=== PATIENT | male | born 1945 | race Caucasian/White ===

== ENCOUNTER 2016-12-02 09:29 | Outpatient (CLI) | payer MEDICARE | END 2016-12-02 09:30 | disposition home or self-care (01) | DX: N40.0 Benign prostatic hyperplasia without lower urinary tract symptoms (principal); M25.562 Pain in left knee; I49.9 Cardiac arrhythmia, unspecified; M16.12 Unilateral primary osteoarthritis, left hip; R73.01 Impaired fasting glucose ==

== ENCOUNTER 2017-01-21 07:08 | Day surgery (SDC) | payer MEDICARE ==
[2017-01-21] MEDS ORDERED: LACTATED RINGERS 1,000 ML IV ONE ×2 (07:49→09:28)
[2017-01-21] MEDS ORDERED: fentaNYL 100 MCG/2 ML VIAL IVP ONE (08:46)
[2017-01-21] MEDS ORDERED: MIDAZOLAM 2 MG/2 ML VIAL IVP ONE (08:46)
[2017-01-21] MEDS ORDERED: EPINEPHrine ABBOJECT 1 MG/10 ML SYRINGE IVP ONE ×2 (09:24→10:08)
[2017-01-21 11:58] VITALS: BP 136/83
== END 2017-01-21 07:09 | disposition home or self-care (01) ==
LOC: SDS 07:08
PROVIDERS: ATTEND Surgery
PROC: 0DBN8ZZ Excision of Sigmoid Colon, Via Natural or Artificial Opening Endoscopic (ICD-10-PCS; principal; 2017-01-21 08:15)
DX: Z12.11 Encounter for screening for malignant neoplasm of colon (principal); D12.7 Benign neoplasm of rectosigmoid junction; Z83.3 Family history of diabetes mellitus; Z80.3 Family history of malignant neoplasm of breast; Z90.49 Acquired absence of other specified parts of digestive tract
CPT/HCPCS: 45380; J7120; 88305

== ENCOUNTER 2017-02-19 09:38 | Outpatient (CLI) | payer MEDICARE | END 2017-02-19 09:39 | disposition home or self-care (01) | LOC: LAB 09:38 | PROVIDERS: ATTEND Orthopaedic Surgery | DX: Z01.818 Encounter for other preprocedural examination (principal) | CPT/HCPCS: 87640 ==

== ENCOUNTER 2017-04-22 04:29 | Inpatient (IN) | payer MEDICARE ==
[2017-04-22] MEDS ORDERED: ceFAZolin 2 GM/50 ML 50 ML IV ONE (06:26)
[2017-04-22] MEDS ORDERED: LACTATED RINGERS 1,000 ML IV ONE ×2 (06:58→08:36)
[2017-04-22] MEDS ORDERED: MIDAZOLAM 2 MG/2 ML VIAL IVP ONE (08:00)
[2017-04-22] MEDS ORDERED: PROPOFOL 200 MG/20 ML VIAL IVP ONE (08:00)
[2017-04-22] MEDS ORDERED: diphenhydrAMINE INJ 50 MG/ML VIAL IVP ONE (08:00)
[2017-04-22] MEDS ORDERED: ACETAMINOPHEN 1,000 MG/100 ML VIAL IV ONE (08:00)
[2017-04-22] MEDS ORDERED: LIDOCAINE-MPF 2% 5 ML VIAL IM ONE (08:00)
[2017-04-22] MEDS ORDERED: fentaNYL 100 MCG/2 ML VIAL IVP ONE (08:00)
[2017-04-22] MEDS ORDERED: MORPHINE PF 5 MG/10 ML AMP EP ONE (08:00)
[2017-04-22] MEDS ORDERED: ROPIVACAINE 0.5% PF 20 ML AMPULE SUBQ ONE (08:05)
[2017-04-22] MEDS ORDERED: BUPIVACAINE 0.5% PF 30 ML VIAL SUBQ ONE (08:06)
[2017-04-22] MEDS ORDERED: EPINEPHrine 1 MG/ML AMP IVP ONE (08:06)
[2017-04-22] MEDS ORDERED: KETOROLAC 15 MG/ML VIAL IVP ONE (08:06)
[2017-04-22] MEDS ORDERED: MORPHINE PF 5 MG/10 ML AMP SUBQ ONE ×3 (08:06)
[2017-04-22] MEDS ORDERED: SODIUM CHLORIDE FLUSH 0.9% 10 ML SYRINGE IVP PRN (10:14)
[2017-04-22] MEDS ORDERED: HYDROmorphone 1 MG/ML SYRINGE IVP PRN (10:14)
[2017-04-22] MEDS ORDERED: ONDANSETRON 4 MG/2 ML VIAL IVP PRN (10:14)
--- NOTE | 2017-04-22 10:14 | OPERATIVE REPORT ---
Operative Report - General Admit Date: 04/22/17 Procedure Date: 04/22/17 Planned Procedure: TKA right Pre-Op Diagnosis: djd right Procedure Performed: Total Knee Arthroplasty right Post Op Diagnosis: DJD right knee - Procedure Note Primary Surgeon: irvin Anesthesia Technique: Spinal Estimated Blood Loss (mL): 25 Drain/Tube Type: Hemovac
[2017-04-22] MEDS ORDERED: ceFAZolin 2 GM/50 ML 50 ML IV SCH (10:15)
--- NOTE | 2017-04-22 11:28 | XRAY Report ---
TWO-VIEW RIGHT KNEE: 04/22/2017 CLINICAL INDICATION: Post-op knee replacement. COMPARISON: 01/01/2017 FINDINGS: AP and lateral views of the right knee demonstrate a total knee replacement in place. Sub cutaneous gas and suprapatellar drain are noted. There is no evidence of acute fracture or immediate hardware complication. IMPRESSION: EXPECTED POSTOPERATIVE APPEARANCE OF RIGHT KNEE REPLACEMENT. JOB #: [id number] EXT JOB #:[id number]
[2017-04-22] MEDS: SODIUM CHLORIDE FLUSH 0.9% 10 ML SYRINGE IVP SCH ×2 (14:07→16:15)
[2017-04-22] MEDS: ceFAZolin 2 GM/50 ML 50 ML IV SCH ×2 (14:07→22:38)
[2017-04-22] MEDS: LACTATED RINGERS 1,000 ML IV SCH (14:07)
--- NOTE | 2017-04-22 15:31 | OPERATIVE REPORT ---
DATE OF SURGERY: 04/22/2017 00:00:00 04/22/2017. PREOPERATIVE DIAGNOSIS: Right knee severe osteoarthritis. POSTOPERATIVE DIAGNOSIS: Right knee severe osteoarthritis. NAME OF PROCEDURE: Right cemented total knee replacement arthroplasty. SURGEON: Chelsea Rodgers MD. ANESTHESIA: Spinal with Barry Heller CRNA. INDICATIONS FOR SURGERY: The patient is a 71-year-old male with progressive severe osteoarthritis of his right knee. The patient has reached the point of decreasing function and constant pain in his kne e with nonoperative measures failing. Recommendation is for total knee arthroplasty. FINDINGS AT SURGERY: The patient was under anesthesia of the spinal anesthetic block. His range of mo tion was noted to be 15 degrees to 90 degrees. At open arthrotomy he was found to have a large effusi on and large prominent loose bodies. Two were removed directly and 2 were in the posterior part of th e knee. The patient's knee was grossly contracted and the wear was tricompartmental and severe most a pparent on the distal femur and the posterior aspect of the tibial plateaus. The patient's bone densi ty was extremely hard, especially in the eburnated areas. DESCRIPTION OF OPERATIVE PROCEDURE: The patient was taken to operating room. He was given a spinal an esthetic. He was positioned supine. Tourniquet was placed on his thigh. His knee and leg were sterile ly prepped and draped in standard fashion. After surgical out the tourniquet was inflated and a curve d incision was made in the medial knee. This was taken through skin and subcutaneous tissue, allowing then exposure of the medial retinaculum which was incised in line with the incision. The knee was ve ry tight and very deformed. At this point loose bodies were removed and fluid evacuated and osteophyt es were removed from the femur, the tibia and the patella. The patella was of such a large size at 30 mm in thickness that an initial 10 mm resection was done of the femoral height and this allowed slig ht lateral release to be performed and the patella to be slid off to the side. Central hole was made in the femur and the distal cutting block was applied, and an extra 2 mm was resected from the femur and further osteophytes were removed. The exposure of the distal surface for sizing was difficult, bu t ultimately the size 12 was selected and the distal cutting block applied for resection of the 4-in- 1 cuts and when this was completed, exposure was made of the proximal tibia and this required some so ft tissue releases, resection of the residual ACL and PCL stumps and menisci with subluxation part of the anterior part of the joint could be exposed, the distal cutting block was applied with the tower and aligned properly. The cut was made to the depth that was visualized and then the block was left in place with the tower off and the remaining cut was carefully made. This still did not allow full f lexion of the knee, even with most of the tibia resected. This was accomplished by an osteotome, carlos ving posterior osteophytes and loose bodies in the posterior part of the knee that then allowed furth er flexion and exposure and subluxation of the tibia so that the remaining cut could be on the tibia. An extra 2 mm was taken from the tibial surface which then allowed a trial reduction with implants a nd drilling of the femur and sizing the proximal tibia to a size H. This was positioned and held with the drill pegs and then drilled and broached for the stem. The patella was then prepared by sizing f or a 38 mm diameter patella, which actually was medialized and this was drilled and a trial reduction performed of all these components with a size 10 poly which adequately restored full extension and a llowed excellent [id number] stability and full flexion to 125 degrees without instability of compon ents. The trial reduction was completed, the implants removed. The knee was thoroughly irrigated and more osteophytes removed as they were exposed. The tibia was then cemented in place, a size H followe d by cementing of the distal femur a size 12 and then insertion of the 10 mm poly and locking it in p lace and then cementing in 38 mm poly patella. All excess cement was removed. The knee was ranged and cycled and was stable. The patient's knee was flushed. A drain was placed and closure was with Fiber Wire closure of capsule followed by 0 and 2-0 Vicryl subcutaneous tissue, and a running subcuticular suture placed in the skin. Sterile dressings were applied. The patient was taken to recovery room in stable condition. ESTIMATED BLOOD LOSS: Minimal. COMPLICATIONS: None. SPONGE AND NEEDLE COUNTS: Correct. JOB #: [id number] EXT JOB #:[id number]
[2017-04-22] MEDS: oxyCOD/ACETAMIN 5 MG/325 MG TABLET PO PRN ×2 (16:15→22:38)
[2017-04-23] MEDS: ACETAMINOPHEN 325 MG TABLET PO PRN (00:34)
[2017-04-23] MEDS: LACTATED RINGERS 1,000 ML IV SCH (01:46)
[2017-04-23] MEDS: SODIUM CHLORIDE FLUSH 0.9% 10 ML SYRINGE IVP SCH ×3 (05:32→20:36)
[2017-04-23 05:51] LABS: HCT - HEMATOCRIT 34.3 % (42.0-52.0); HGB - HEMOGLOBIN 11.8 g/dL (14.0-18.0)
[2017-04-23 05:58] LABS: CALCIUM 7.9 mg/dL (8.5-10.3); CREATININE 0.9 mg/dL (0.6-1.2); POTASSIUM 4.1 mmol/L (3.5-5.0)
--- NOTE | 2017-04-23 08:41 | PROVIDER PROGRESS NOTE ---
Subjective - General Admit Date: 04/22/17 Procedure Date: 04/22/17 Post Op Days: 1 Procedure Performed: right total knee arthroplasty - Review of Systems Wound/Incisions: positive: Dressing dry and intact General: positive: No symptoms Musculoskeletal: positive: Joint pain Objective - Patient Data Reviewed Vital Signs: Yes Vital Signs: Vital Signs x48h Temp Pulse Resp BP Pulse Ox 04/23/17 06:00 37.3 C 53 L 16 104/59 L 95 04/23/17 04:15 37.3 C 04/23/17 02:00 37.7 C H Weight: Weight 04/21/17 04/22/17 04/23/17 23:59 23:59 23:59 Weight (kg) 106.1 kg Intake & Output: Intake and Output Totals x24h 04/21/17 04/22/17 04/23/17 23:59 23:59 23:59 Intake Total 2748 Output Total 875 475 Balance 1873 -475 - Lab Results Lab Results: 04/23/17 05:43 04/23/17 05:43 Other Lab Results: Lab Results x24hrs 04/23/17 04/23/17 Range/Units 05:43 05:43 Hgb 11.8 L (14.0-18.0) g/dL Hct 34.3 L (42.0-52.0) % Sodium 136 (135-145) mmol/L Potassium 4.1 (3.5-5.0) mmol/L Chloride 103 (101-111) mmol/L Carbon Dioxide 30 (21-32) mmol/L Anion Gap 3.0 L (6-13) BUN 24 H (6-20) mg/dL Creatinine 0.9 (0.6-1.2) mg/dL Estimated GFR (MDRD) 83 L (>89) Glucose 104 H (70-100) mg/dL Calcium 7.9 L (8.5-10.3) mg/dL - Imaging Results Radiology Imaging: positive: EMP read indepedently - Current Medications Current Medications: Current Medications Generic Name Dose Route Start Last Admin Trade Name Freq PRN Reason Stop Dose Admin Acetaminophen 650 - 975 mg 04/22/17 10:14 04/23/17 00:34 Tylenol PO 650 mg Q4HR PRN Administration PAIN Lactated Ringer's 1,000 mls @ 83.333 mls/hr 04/22/17 14:00 04/23/17 01:46 Lr IV 83.333 mls/hr .Q12H [place] Administration Oxycodone/Acetaminophen 1 tab 04/22/17 10:14 04/22/17 22:38 Percocet 5 Mg/325 Mg PO 1 tab Q4HR PRN Administration PAIN Sodium Chloride 10 ml 04/22/17 14:00 04/23/17 05:32 Normal Saline Flush 0.9% IVP Not Given Q8HR [place] - Physical Exam Wound/Incisions: positive: Dressing dry and intact General Appearance: positive: No acute distress Neurologic/Psychiatric: positive: Motor nml, Sensation nml, Mood/affect nml Impression/Plan - Problem List Problem List: POD #1 doing well with some pain but no nausea. Labs stable Plan rehab.
[2017-04-23] MEDS: POLYETHYLENE GLYCOL 3350 17 GM PACKET PO SCH (09:28)
[2017-04-23] MEDS: ASPIRIN EC 325 MG TABLET PO SCH ×2 (14:33→20:36)
[2017-04-23] MEDS: oxyCOD/ACETAMIN 5 MG/325 MG TABLET PO PRN (14:33)
[2017-04-24] MEDS: SODIUM CHLORIDE FLUSH 0.9% 10 ML SYRINGE IVP SCH ×3 (06:26→20:26)
--- NOTE | 2017-04-24 08:33 | PROVIDER PROGRESS NOTE ---
Subjective - General Admit Date: 04/22/17 Procedure Date: 04/22/17 Post Op Days: 2 Procedure Performed: right total knee arthroplasty - Review of Systems Wound/Incisions: positive: Dressing dry and intact Gastrointestinal: positive: No symptoms Musculoskeletal: positive: Joint pain Objective - Patient Data Reviewed Vital Signs: Yes Vital Signs: Vital Signs x48h Temp Pulse Resp BP Pulse Ox 04/24/17 07:51 37 C 73 16 120/72 96 04/24/17 04:46 37.1 C 71 16 124/74 94 Weight: Weight 04/22/17 04/23/17 04/24/17 23:59 23:59 23:59 Weight (kg) 106.1 kg Intake & Output: Intake and Output Totals x24h 04/22/17 04/23/17 04/24/17 23:59 23:59 23:59 Intake Total 2748 1360 200 Output Total 875 1250 1200 Balance 1873 110 -1000 - Lab Results Lab Results: 04/23/17 05:43 04/23/17 05:43 - Current Medications Current Medications: Current Medications Generic Name Dose Route Start Last Admin Trade Name Freq PRN Reason Stop Dose Admin Acetaminophen 650 - 975 mg 04/22/17 10:14 04/23/17 00:34 Tylenol PO 650 mg Q4HR PRN Administration PAIN Aspirin 325 mg 04/23/17 13:00 04/23/17 20:36 Ecotrin PO 325 mg BID [place] Administration Oxycodone/Acetaminophen 1 tab 04/22/17 10:14 04/23/17 14:33 Percocet 5 Mg/325 Mg PO 1 tab Q4HR PRN Administration PAIN Polyethylene Glycol 17 gm 04/23/17 09:00 04/23/17 09:28 Miralax PO 17 gm DAILY [place] Administration Sodium Chloride 10 ml 04/22/17 14:00 04/24/17 06:26 Normal Saline Flush 0.9% IVP 10 ml Q8HR [place] Administration - Physical Exam Wound/Incisions: positive: Healing well General Appearance: positive: No acute distress Extremities: positive: Joint swelling Neurologic/Psychiatric: positive: Motor nml, Sensation nml Impression/Plan - Problem List Problem List: POD #2 Pt has some mobility issues and knee pain. Healing looks excellent ]Plan for continued wound care and pain control PT today and plan for poss. D.C [facility]
[2017-04-24] MEDS: ASPIRIN EC 325 MG TABLET PO SCH ×2 (08:51→20:26)
[2017-04-24] MEDS: POLYETHYLENE GLYCOL 3350 17 GM PACKET PO SCH (08:51)
[2017-04-24] MEDS: ACETAMINOPHEN 325 MG TABLET PO PRN (16:25)
[2017-04-25] MEDS: SODIUM CHLORIDE FLUSH 0.9% 10 ML SYRINGE IVP SCH (06:57)
--- NOTE | 2017-04-25 07:15 | Discharge Plan ---
Discharge Plan Disposition: Home Health Service Condition: Good Prescriptions: oxyCODONE/ACET 5/325 [Percocet 5 mg/325 mg] 1 tab PO Q4HR PRN #30 tablet PRN Reason: Pain Aspirin EC [Ecotrin] 325 mg PO BID #60 tablet Polyethylene Glycol 3350 [Miralax] 17 gm PO DAILY #14 packet Diet: Regular Activity Restrictions: Wt Bearing as Tolerated Shower Restrictions: Yes (cover wound) Driving Restrictions: Yes (no driving) Assistance Devices: Walker Weight Bearing: weight bear as tolerated Instruction Topics: Knee Replace Home After Additional Instructions or Follow Up instructions: dressing to remain intact until clinic visit. ROM exercises at home..self directed. Follow-Up Care: Home Health - PT (ROM exercises of the right knee. Modalities. Home exercises. WEight bear as tolerated) No Smoking: If you smoke, Please STOP! Call for help. Follow-up with: David Almeida MD [Primary Care Provider] - Chelsea Rodgers MD [Provider Admit Priv/Credential] -
[2017-04-25] MEDS: ASPIRIN EC 325 MG TABLET PO SCH (09:00)
[2017-04-25] MEDS: POLYETHYLENE GLYCOL 3350 17 GM PACKET PO SCH (09:00)
[2017-04-25 10:50] VITALS: BP 119/63
--- NOTE | 2017-04-29 14:19 | DISCHARGE SUMMARY ---
DATE OF ADMISSION: 04/22/2017 DATE OF DISCHARGE: 04/25/2017 REASON FOR ADMISSION: Right knee degenerative arthritis. Operative procedure was 04/22/2017, a right total knee replacement arthroplasty. The patient is a 71-year-old male who presented for elective eric eduled right total knee arthroplasty. The patient had increasing pain in his knee with functional bryant itation and was failing nonoperative treatment. DESCRIPTION OF THE HOSPITAL COURSE: The patient was admitted, and he underwent surgery as planned and had uneventful course in surgery and then returned to the hospital floor. There he received standard care in the postoperative period of a total knee arthroplasty, including IV antibiotics, DVT prophyl axis, early mobilization with therapy and pain management. At the time of the patient's planned disch arge to home, the patient's wound was healing well. He was independent, getting out of bed and to the bathroom. He was moving his knee reasonably well in the early period. The plan at discharge was for him to be discharged to home with home health visiting, and he was to be on his regular medications, including oxycodone for pain and enteric aspirin b.i.d. for DVT prophylaxis. His office visit was to be in the clinic within a week of discharge. He was using a walker and was to be weightbearing as serenity jaime. JOB #: [id number] EXT JOB #:[id number]
== END 2017-04-25 11:05 | disposition home or self-care (01) | DRG 470 ==
LOC: MS2 06:06
PROVIDERS: ADMIT Orthopaedic Surgery; ATTEND Orthopaedic Surgery
PROC: 0SRC0J9 Replacement of Right Knee Joint with Synthetic Substitute, Cemented, Open Approach (ICD-10-PCS; principal; 2017-04-22 07:30)
DX: M17.11 Unilateral primary osteoarthritis, right knee (principal)
CPT/HCPCS: 36415; 80048; 85014; 85018

== ENCOUNTER 2017-10-21 08:26 | Day surgery (SDC) | payer MEDICARE ==
[~2017-10-21 08:26] MED LIST: ceFAZolin 1 GM VIAL ONE
[2017-10-21] MEDS ORDERED: LACTATED RINGERS 1,000 ML IV ONE ×2 (09:03→11:54)
[2017-10-21] MEDS ORDERED: ROPIVACAINE 0.5% PF 20 ML AMPULE ONE (09:32)
[2017-10-21] MEDS ORDERED: NEOSTIGMINE 1 MG/1 ML 10 ML MDV IVP ONE (10:00)
[2017-10-21] MEDS ORDERED: DEXAMETHASONE 4 MG/ML VIAL IVP ONE (10:00)
[2017-10-21] MEDS ORDERED: LIDOCAINE-MPF 2% 5 ML VIAL IM ONE (10:00)
[2017-10-21] MEDS ORDERED: MIDAZOLAM 2 MG/2 ML VIAL IVP ONE (10:00)
[2017-10-21] MEDS ORDERED: fentaNYL 100 MCG/2 ML VIAL IVP ONE (10:00)
[2017-10-21] MEDS ORDERED: ONDANSETRON 4 MG/2 ML VIAL IVP ONE (10:00)
[2017-10-21] MEDS ORDERED: ACETAMINOPHEN 1,000 MG/100 ML 100 ML IV ONE (10:00)
[2017-10-21] MEDS ORDERED: GLYCOPYRROLATE 1 MG/5 ML VIAL IVP ONE (10:00)
[2017-10-21] MEDS ORDERED: PROPOFOL 200 MG/20 ML VIAL IVP ONE (10:00)
[2017-10-21] MEDS ORDERED: BUPIVACAINE 0.25% PF 30 ML VIAL SUBQ ONE (11:30)
--- NOTE | 2017-10-21 12:23 | OPERATIVE REPORT ---
DATE OF SERVICE: 10/21/2017 Physician: Chelsea Rodgers MD PREOPERATIVE DIAGNOSIS: Left Achilles tendon tear. POSTOPERATIVE DIAGNOSIS: Left Achilles tendon tear. PROCEDURE PERFORMED: Left Achilles tendon repair. SURGEON: Chelsea Rodgers MD ANESTHESIA: General by Denise Ron. INDICATIONS FOR SURGERY: The patient is a 72-year-old male with a ski injury, in which he was thrown forward and felt a painful sensation in his left Achilles and suffered a traumatic rupture. He desired surgical repair after discussion with him about alternatives. FINDINGS AT SURGERY: Patient was found to have a midsubstance tear of the Achilles tendon, approximately 3 inches above its insertion in the calcaneus. The tear showed fibrillation and strands and was not transverse and simple. The patient's plantaris was intact. DESCRIPTION OF OPERATIVE PROCEDURE: Patient was taken to the operating room, given a general anesthetic and then rolled into a prone position on a well-padded, bolstered hospital OR table and once comfortably positioned the tourniquet was placed on the patient's left thigh and his left foot and ankle was sterilely prepped and draped in a standard fashion. After surgical timeout, the tourniquet was inflated. A posterior 5-inch incision was made along the lateral aspect of the Achilles and a careful dissection made down to the Achilles tendon sheath, preserving the sural nerve and the vasculature around that. The sheath was opened longitudinally and the nature of the tear was identified and hematoma evacuated. This tear was carefully sutured and repaired utilizing #2 FiberWire with a Alden type suture utilizing a modified Seth type stitch and then reinforcing this with #1 Vicryl, repairing strands of torn tendon and tacking them down. At the conclusion, 0 Vicryl was used interrupted to repair of the tendon sheath over the repair and 0 and 2-0 Vicryl used in the subcutaneous tissue in interrupted fashion and finally 4-0 Monocryl in a running fashion subcutaneous. A Mediplex dressing was applied to the posterior incision and then a carefully padded posterior splint was applied. The patient was then placed onto a hospital gurney in a supine position and taken to recovery room in stable condition. ESTIMATED BLOOD LOSS: Minimal. COMPLICATIONS: None. COUNTS: Sponge and needle counts were correct. ESTIMATED BLOOD LOSS: Less than 20 mL TOURNIQUET TIME: About 30 minutes. TD: 10/21/2017 12:21
[2017-10-21 13:10] VITALS: BP 129/75
== END 2017-10-21 08:27 | disposition home or self-care (01) ==
LOC: SDS 08:26
PROVIDERS: ATTEND Orthopaedic Surgery
PROC: 0LQP0ZZ Repair Left Lower Leg Tendon, Open Approach (ICD-10-PCS; principal; 2017-10-21 09:45)
DX: S86.012A Strain of left Achilles tendon, initial encounter (principal); Y93.23 Activity, snow (alpine) (downhill) skiing, snowboarding, sledding, tobogganing and snow tubing
CPT/HCPCS: 27650; J0131; J7120

== ENCOUNTER 2019-03-26 06:09 | Day surgery (SDC) | payer MEDICARE ==
[2019-03-26] MEDS ORDERED: LACTATED RINGERS 1,000 ML IV ONE ×3 (06:19→09:11)
[2019-03-26] MEDS ORDERED: CEFAZOLIN SODIUM IN 0.9 % NACL 2 GM/100 ML BAG IV ONE (06:48)
--- NOTE | 2019-03-26 07:13 | ANESTHESIA ---
Pre-Anesthesia VS, & Labs - Diagnosis excision right posterior head/neck mass - Procedure excision right posterior neck mass Vital Signs: Temp Pulse Resp BP Pulse Ox 36.3 C L 45 L 15 141/78 H 94 03/26/19 06:35 03/26/19 06:35 03/26/19 06:35 03/26/19 06:35 03/26/19 06:35 Height 6 ft Weight (kg) 103 kg - NPO >8 hours Home Medications and Allergies Home Medications: Ambulatory Orders Glucos Sul 2Kcl/MSM/Chond/C/Mn [Glucosamine Chondroitin Cap] 1 each PO DAILY 03/16/19 Multivitamin [Daily Multiple Vitamin] 1 each PO DAILY 03/16/19 Turmeric 400 mg PO DAILY 03/16/19 Glucos Sul 2Kcl/MSM/Chond/C/Mn [Glucosamine Chondroitin Cap] 1 each PO DAILY 03/16/19 Multivitamin [Daily Multiple Vitamin] 1 each PO DAILY 03/16/19 Turmeric 400 mg PO DAILY 03/16/19 Allergies/Adverse Reactions: Allergies Allergy/AdvReac Type Severity Reaction Status Date / Time No Known Drug Allergies Allergy Verified 10/20/17 16:55 Anes History & Medical History - Anesthetic History Anesthesia Complications: reports: No previous complications - Medical History 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, asymtomatic) Pulmonary: reports: None Gastrointestinal: reports: Colon polyps Urinary: reports: Kidney stones Musculoskeletal: reports: Osteoarthritis Endocrine/Autoimmune: reports: None Skin: reports: None Smoking Status: Never smoker - Surgical History General: Appendectomy, Bowel surgery, Colonoscopy Orthopedic: Hip replacement, Knee replacement, Arthroscopic surgery, Other Exam General: Alert Dental: WNL Mouth Opening: Greater than 4 Fingerbreadths Neck Mobility: Normal Mallampati classification: II Respiratory: Lungs clear Cardiovascular: Regular rate, Normal S1, Normal S2 Plan Anesthesia Type: General Consent for Procedure(s) Verified and Reviewed: Yes Code Status: Attempt Resuscitation ASA classification: 2-Mild systemic disease Is this case an emergency?: No
[2019-03-26] MEDS ORDERED: BUPIVACAINE 0.5% PF 10 ML VIAL ONE (07:20)
[2019-03-26] MEDS ORDERED: BUPIVACAINE 0.5% PF 30 ML VIAL INFIL ONE ×2 (08:14)
[2019-03-26] MEDS ORDERED: ONDANSETRON 4 MG/2 ML VIAL IVP PRN (09:05)
[2019-03-26] MEDS ORDERED: HYDROcod/ACETAM 5/325 MG TABLET PO PRN (09:05)
[2019-03-26] MEDS ORDERED: HYDROmorphone 0.5 MG/0.5 ML SYRINGE IVP PRN (09:05)
--- NOTE | 2019-03-26 09:14 | OPERATIVE REPORT ---
Operative Report - General Procedure Date: 03/26/19 Planned Procedure: Large posterior neck mass (lipoma suspected) Pre-Op Diagnosis: Large posterior neck mass Procedure Performed: Excision of large posterior neck mass (lipoma suspected) Post Op Diagnosis: Large posterior neck mass (lipoma) - Procedure Note Primary Surgeon: Fernando Perez MD Anesthesia Provider: Denise Pérez CRNA Anesthesia Technique: General ET tube, Local (30 mL 1/2% marcaine) IV Fluids (mL): 1,500 Estimated Blood Loss (mL): 20 Drain/Tube Type: Other (None.) Complications: None. - Other Other Information/Narrative: OPERATIVE DESCRIPTION/REPORT: After verbal and written informed consent was obtained detailing the risks of infection, bleeding requiring transfusion with its risks, nerve injury, and , and after I met with the patient confirming the surgery and the site of the surgery, the patient was brought to the operative suite and placed supine on the operating table. Great care was taken to avoid pressure points to prevent pressure necrosis or nerve injury. Monitoring devices were applied along with TEDs and pneumatic compressive stockings (to prevent DVT). The patient received preoperative antibiotics for surgical prophylaxis. Denise Pérez CRNA sedated and anesthetized the patient for the entire procedure. The patient was then placed prone on the operating room table taking care to pad extremities and pressure points to prevent pressure necrosis or nerve injury. The patient was prepped and draped in the usual sterile manner. With the patient draped my initials were clearly visible. A "time in" then confirmed that the patient was identified with 3 identifiers (name, date and medical record number), the history and physical was in the chart, the signed consent confirming the procedure was in the chart, the patient was in the correct position, the aforementioned prophylactic measures were in place or given, we had the correct personnel and equipment to complete the procedure and that anesthesia, surgery and nursing were given an opportunity to express any concerns. With the agreement of everyone in the room, we proceeded with the operation. A transverse midline incision was made overlying the mass mass using a combination of Metzenbaum scissors, scalpel, and mostly Bovie electrocautery. Of note the lipoma measured approximately 6 cm in diameter whereas the incision was 4-1/2 cm in length. The lipoma was clearly identified and identifiable but it was not in the one "ball" but rather it was one of these "caramel turtle" type lipomas where tongues of fat had insinuated in between tissues. A rather tedious dissection removed all of these tongues of fat. Digital examination as well as visual examination did not reveal any additional lipoma. The s ubcutaneous tissues were copiously irrigated, and then closed using an interrupted 2-0 Vicryl. Meticulous hemostasis was obtained using Bovie electrocautery. The skin incision was approximated with a running 4-0 Monocryl. The skin and subcutaneous tissues were injected with half percent Marcaine. A total of 30 mL was used. The prep was washed off and Dermabond was applied. At this point a time out was performed that confirmed that all the counts were correct, the procedure that was performed, the blood loss, the IV fluids administered, and the patients condition. Having tolerated the procedure well, the patient was subsequently extubated and taken to recovery room in good and stable condition. Dragon disclaimer: This document was created in part using voice recognition technology. Because of the inherent limitations of the system ([employer] user manual states that the licensee understands that speech recognition is a statistical process and that recognition errors are inherent in the process), occasional same sounding word substitutions and grammatical errors do occur and persist despite proofreading. Please read this document for context.
[2019-03-26 10:15] VITALS: BP 133/74
== END 2019-03-26 06:10 | disposition home or self-care (01) ==
LOC: SDS 06:09
PROVIDERS: ATTEND Surgery
PROC: 0JB40ZZ Excision of Right Neck Subcutaneous Tissue and Fascia, Open Approach (ICD-10-PCS; principal; 2019-03-26 07:30)
DX: D17.0 Benign lipomatous neoplasm of skin and subcutaneous tissue of head, face and neck (principal)
CPT/HCPCS: 11426; J0690; J7120

== ENCOUNTER 2019-12-15 11:40 | Outpatient (CLI) | payer MEDICARE ==
--- NOTE | 2019-12-15 19:47 | XRAY Report ---
Reason: ARTHRITIS CERVICAL SPINE Procedure Date: 12/15/2019 Accession Number: [id number] / [id number] Procedure: WCP - Cervical Spine 2 View CPT Code: Final Report FULL RESULT: EXAM: CERVICAL SPINE RADIOGRAPHY EXAM DATE: 12/15/2019 11:40 AM. CLINICAL HISTORY: ARTHRITIS CERVICAL SPINE. Fall 2 months ago. Continued neck pain. COMPARISONS: None. TECHNIQUE: 5 views. FINDINGS: Alignment: Normal. No spondylolisthesis or scoliosis. Bones: The cervical vertebral bodies and posterior elements are well visualized from the skull base through C7-T1. No fractures or bone lesions. Disks: Disk height loss and endplate osteophyte formation indicating moderate degenerative disk disease C3-C4, C4-C5, C5-C6. Facets: Multilevel mild right and moderate left facet osteoarthritis. Soft Tissues: Normal. No prevertebral soft tissue swelling. The visualized lung apices are clear. IMPRESSION: 1. There are no fracture or malalignment. 2. Moderate degenerative disk disease C3-C4 through C5-C6. 3. Multilevel mild right and moderate left facet osteoarthritis. RADIA
== END 2019-12-15 23:59 | disposition home or self-care (01) ==
LOC: DI.WCP 11:40
PROVIDERS: ATTEND Family Medicine
DX: M47.812 Spondylosis without myelopathy or radiculopathy, cervical region (principal); M50.31 Other cervical disc degeneration, high cervical region
CPT/HCPCS: 72040

== ENCOUNTER 2021-02-01 11:49 | Outpatient (CLI) | payer MEDICARE ==
--- NOTE | 2021-02-01 18:08 | XRAY Report ---
PROCEDURE: Toe(s) RT INDICATIONS: 3RD R TOE INFECTION TECHNIQUE: 3 views of the right third toe(s) acquired. COMPARISON: None FINDINGS: Bones: No fractures or dislocations. No suspicious bony lesions. No osseous erosive changes or elijah osteal reaction. Soft tissues: No suspicious soft tissue densities. Soft tissue swelling is noted. No soft tissue gas . IMPRESSION: No ra evidence of osteomyelitis. Please note plain from radiographs can be insensitive to changes of osteomyelitis in the initial 15 days of the disease. There is continued clinical concern for osteo myelitis, consider three-phase nuclear medicine bone scan for further evaluation. Reviewed by: Danette Zaldivar MD, PhD on 02/01/2021 6:07 PM PDT Approved by: Danette Zaldivar MD, PhD on 02/01/2021 6:07 PM PDT Station ID: [id number]
== END 2021-02-01 23:59 | disposition home or self-care (01) ==
LOC: DI.N 11:49
PROVIDERS: ATTEND Family Medicine
DX: L08.9 Local infection of the skin and subcutaneous tissue, unspecified (principal)

== ENCOUNTER 2021-07-13 11:21 | Day surgery (SDC) | payer MEDICARE ==
[2021-07-13] MEDS ORDERED: LACTATED RINGERS 1,000 ML IV ONE (12:00)
--- NOTE | 2021-07-13 12:15 | ANESTHESIA ---
Pre-Anesthesia VS, & Labs - Diagnosis hx colon polyp - Procedure colonoscopy Vital Signs: Temp Pulse Resp BP Pulse Ox 36.8 C 66 20 155/94 H 95 07/13/21 11:40 07/13/21 11:40 07/13/21 11:40 07/13/21 11:40 07/13/21 11:40 Height: 6 ft 2 in Weight (kg): 102.1 kg Body Mass Index: 28.9 BMI Classification: Overweight - NPO >8 hours Home Medications and Allergies Glucos Sul 2Kcl/MSM/Chond/C/Mn [Glucosamine Chondroitin Cap] 1 each PO DAILY 03/16/19 Multivitamin [Daily Multiple Vitamin] 1 each PO DAILY 03/16/19 Turmeric 400 mg PO DAILY 03/16/19 Allergies/Adverse Reactions: Allergies Allergy/AdvReac Type Severity Reaction Status Date / Time No Known Drug Allergies Allergy Verified 10/20/17 16:55 Anes History & Medical History - Anesthetic History Anesthesia Complications: reports: No previous complications Family history of Anesthesia Complications: Denies Family history of Malignant Hyperthermia: Denies - Medical History Cardiovascular: reports: Arrhythmia Pulmonary: reports: None Gastrointestinal: reports: Colon polyps Urinary: reports: None Musculoskeletal: reports: Osteoarthritis Endocrine/Autoimmune: reports: None Skin: reports: None Smoking Status: Never smoker - Surgical History General: reports: Colonoscopy Orthopedic: reports: Hip replacement, Knee replacement Exam General: Alert, Oriented x3, Cooperative Dental: WNL Mouth Openin Fingerbreadth Neck Mobility: Normal Mallampati classification: II Thyromental Distance: 4-6 cm Respiratory: Lungs clear Cardiovascular: Regular rate Abdomen: Normal bowel sounds Mental/Cognitive Status: Alert/Oriented X3 Plan Anesthesia Type: Total IV Consent for Procedure(s) Verified and Reviewed: Yes Code Status: Attempt Resuscitation ASA classification: 2-Mild systemic disease Is this case an emergency?: No
[2021-07-13] MEDS ORDERED: PROPOFOL 500 MG/50 ML 500 MG/50 ML VIAL ONE (13:46)
[2021-07-13] MEDS ORDERED: fentaNYL 100 MCG/2 ML VIAL ONE (13:58)
[2021-07-13] MEDS ORDERED: MIDAZOLAM 2 MG/2 ML VIAL ONE (13:58)
[2021-07-13] MEDS ORDERED: LACTATED RINGERS 700 ML IV ONE (14:44)
[2021-07-13 15:12] VITALS: BP 115/80
--- NOTE | 2021-07-17 07:12 | ANESTHESIA POST OP EVALUATION ---
Anesthesia Post Eval - Post Anesthesia Eval Vitals: Last Vital Signs Temp 36.6 C 07/13/21 15:11 Pulse 70 07/13/21 15:11 Resp 23 07/13/21 15:11 BP 115/80 07/13/21 15:11 Pulse Ox 96 07/13/21 15:11 CV Function Including HR & BP: Stable Pain Control: Satisfactory Nausea & Vomiting: Negative Mental Status: Baseline Respiratory Status: Airway Patent Hydration Status: Satisfactory Anesthesia Complications: None
== END 2021-07-13 11:22 | disposition home or self-care (01) ==
LOC: SDS 11:21
PROVIDERS: ATTEND Surgery
PROC: 0DBL8ZZ Excision of Transverse Colon, Via Natural or Artificial Opening Endoscopic (ICD-10-PCS; 2021-07-13)
PROC: 0DBN8ZZ Excision of Sigmoid Colon, Via Natural or Artificial Opening Endoscopic (ICD-10-PCS; principal; 2021-07-13 13:30)
DX: Z12.11 Encounter for screening for malignant neoplasm of colon (principal); D12.3 Benign neoplasm of transverse colon; K63.5 Polyp of colon; Z90.49 Acquired absence of other specified parts of digestive tract; Z98.0 Intestinal bypass and anastomosis status; Z96.642 Presence of left artificial hip joint; Z96.653 Presence of artificial knee joint, bilateral; Z79.899 Other long term (current) drug therapy
CPT/HCPCS: 45380; J7120

== ENCOUNTER 2021-09-11 08:00 | Outpatient (CLI) | payer MEDICARE ==
[2021-09-11 18:43] LABS: BASOPHILS % (AUTO) 0.4 %; EOSINOPHILS # (AUTO) 0.2 10^3/uL (0.0-0.7); EOSINOPHILS % (AUTO) 3.6 %; HCT - HEMATOCRIT 44.8 % (42.0-52.0); HGB - HEMOGLOBIN 15.1 g/dL (14.0-18.0); LYMPHOCYTES # (AUTO) 1.4 10^3/uL (1.5-3.5); LYMPHOCYTES % (AUTO) 32.1 %; MEAN CORPUSCULAR HEMOGLOBIN 33.7 pg (27.0-31.0); MEAN CORPUSCULAR HGB CONC 33.7 g/dL (32.0-36.0); MEAN PLATELET VOLUME 11.6 fL (7.4-11.4); MONOCYTES # (AUTO) 0.4 10^3/uL (0.0-1.0); MONOCYTES % (AUTO) 8.7 %; NEUTROPHILS # (AUTO) 2.5 10^3/uL (1.5-6.6); PLT - PLATELET COUNT 158 10^3/uL (130-450); RED BLOOD COUNT 4.48 10^6/uL (4.70-6.10); RED CELL DISTRIBUTION WIDTH 13.9 % (12.0-15.0); WHITE BLOOD COUNT 4.5 x10^3/uL (4.8-10.8)
[2021-09-11 18:47] LABS: THYROID STIMULATING HORMONE 0.46 uIU/mL (0.34-5.60)
[2021-09-11 18:51] LABS: CREATININE,URINE 138.4 mg/dL; MICROALBUM/CREATININE RATIO,UR 13.7 ug/mg (<30.0); MICROALBUMIN,URINE 1.9 mg/dL (0-300.0)
[2021-09-11 18:54] LABS: ALBUMIN/GLOBULIN RATIO 1.1 (1.0-2.2); ALKALINE PHOSPHATASE 55 IU/L (42-121); ALT ALANINE AMINOTRANSFERASE 18 IU/L (10-60); AST ASPARTATE AMINOTRANSFERASE 14 IU/L (10-42); BILIRUBIN,TOTAL 0.7 mg/dL (0.2-1.0); BUN - BLOOD UREA NITROGEN 23 mg/dL (6-20); CALCIUM 9.4 mg/dL (8.5-10.3); CARBON DIOXIDE - CO2 30 mmol/L (21-32); CHLORIDE 103 mmol/L (101-111); CHOL/HDL RATIO 4.9 (<5.0); CHOLESTEROL 182 mg/dL; CREATININE 0.8 mg/dL (0.6-1.2); GFR - MDRD 94 (>89); GLUCOSE 79 mg/dL (70-100); HDL CHOLESTEROL 37 mg/dL; LDL CHOLESTEROL,CALCULATED 125 mg/dL; LDL/HDL RATIO 3.4 (<3.6); POTASSIUM 4.4 mmol/L (3.5-5.0); SODIUM 140 mmol/L (135-145); TOTAL PROTEIN 7.5 g/dL (6.7-8.2); TRIGLYCERIDES 98 mg/dL; VLDL CHOLESTEROL 20 mg/dL
[2021-09-11 20:40] LABS: ESTIMATED AVERAGE GLUCOSE 126 mg/dL (70-100)
== END 2021-09-11 23:59 ==
LOC: LAB.WCP 08:00
PROVIDERS: ATTEND Internal Medicine
DX: R00.8 Other abnormalities of heart beat (principal); Z13.220 Encounter for screening for lipoid disorders; R73.01 Impaired fasting glucose
CPT/HCPCS: 36415; 80053; 80061; 82043; 82570; 83036; 83721; 84443; 85025

== ENCOUNTER 2021-11-22 14:03 | Emergency (ER) | payer MEDICARE ==
--- OUTSIDE RECORDS SUMMARY | 2021-11-22 14:20 | EXTERNAL MEDICAL SUMMARY RPT | Continuity of Care Document ---
:1945 Author Organization [facility] Address [address] [place] [address] Phone Allergies No information. Encounters No information. Medications No information. Problems date description facility 20211028 Unspecified fracture of unspecified [facility] lumbar vertebra, initial encounter for closed fracture 20211028 Unspecified fracture of T11-T12 [facility] vertebra, initial encounter for closed fracture 20211028 Unspecified fall, initial encounter [facility] 20211028 Traumatic subdural hemorrhage with loss [facility] of consciousness of unspecified duration, initial encounter 20211028 Nontraumatic subarachnoid hemorrhage, [facility] unspecified 20211028 BACK INJURY [facility] Results No information.
--- NOTE | 2021-11-22 14:45 | XRAY Report ---
PROCEDURE: Hip w/Pelvis 2-3V LT INDICATIONS: leg pain TECHNIQUE: AP pelvis with lateral view(s) of the left hip(s). COMPARISON: None. FINDINGS: Bones: Postsurgical changes compatible with left hip arthroplasty. Orthopedic hardware is in expecte d position. Orthopedic hardware is intact. No left hip fractures or dislocations. Fracture of the lef t obturator ring of indeterminate age. No suspicious bony lesions. Soft tissues: The visualized bowel gas pattern is normal. No suspicious soft tissue calcifications. IMPRESSION: Status post left hip arthroplasty. Fracture of the left inferior ischial ramus of indeterminate age. Reviewed by: Danette Zaldivar MD, PhD on 11/22/2021 2:44 PM PDT Approved by: Danette Zaldivar MD, PhD on 11/22/2021 2:44 PM PDT Station ID: [id number]
[2021-11-22 15:14] VITALS: BP 123/74
--- NOTE | 2021-11-22 15:30 | ED Physician Documentation ---
History of Present Illness - Stated complaint Stated Complaint: LT HIP PX - Chief complaint Chief Complaint: Trauma Ext - History obtained from History obtained from: Patient - History of Present Illness Timing: How many days ago (2-3) Pain level max: 5 Pain level now: 5 - Additonal information Additional information: Patient is a 76-year-old male who comes to the emergency department after being seen at the walk-in clinic earlier today for left hip pain. He fell out of a ski lift chair about 3 weeks ago, suffering fractures to his cervical, thoracic and lumbar spine. He is in a cervical collar and TLSO brace. He states he has begun to develop pain in his left hip. Worse with walking, better with rest. He is tender to palpation on the lateral aspect of the hip. No leg swelling. No skin changes. Has not taken anything for the pain. Review of Systems Ten Systems: 10 systems reviewed and negative Constitutional: denies: Fever, Chills Respiratory: denies: Cough GI: denies: Nausea, Vomiting, Diarrhea Skin: denies: Rash Musculoskeletal: denies: Neck pain, Back pain PD PAST MEDICAL HISTORY - Past Medical History Past Medical History: Yes Cardiovascular: Arrhythmia Respiratory: None Endocrine/Autoimmune: None GI: Colon polyps : None HEENT: None Psych: None Musculoskeletal: Osteoarthritis Derm: None - Past Surgical History Past Surgical History: Yes General: Colonoscopy Ortho: Hip replacement, Knee replacement - Present Medications Home Medications: Ambulatory Orders Medication Instructions Recorded Confirmed Glucos Sul 2Kcl/MSM/Chond/C/Mn 1 each PO DAILY 03/16/19 07/12/21 [Glucosamine Chondroitin Cap] Multivitamin [Daily Multiple 1 each PO DAILY 03/16/19 07/12/21 Vitamin] Turmeric 400 mg PO DAILY 03/16/19 07/12/21 - Allergies Allergies/Adverse Reactions: Allergies Allergy/AdvReac Type Severity Reaction Status Date / Time cat dander AdvReac Rash Verified 11/22/21 15:14 - Social History Does the pt smoke?: No Smoking Status: Never smoker Does the pt drink ETOH?: No Does the pt have substance abuse?: No - Immunizations Immunizations are current?: Yes PD ED PE NORMAL - Vitals Vital signs reviewed: Yes - General General: Alert and oriented X 3, No acute distress, Other (Patient is in a cervical collar as well as a TLSO brace) - HEENT HEENT: PERRL, Moist mucous membranes - Neck Neck: Supple, no meningeal sign - Cardiac Cardiac: RRR, Strong equal pulses - Respiratory Respiratory: No respiratory distress, Clear bilaterally - Abdomen Abdomen: Soft, Non tender, Non distended - Derm Derm: Warm and dry - Extremities Extremities: Other (Tender to palpation along the lateral aspect of the left leg from the greater trochanter down to the mid thigh. No tenderness on the posterior medial aspect of the leg. No swelling. No skin changes. Neurovascularly intact.) - Neuro Neuro: Alert and oriented X 3 - Psych Psych: Normal mood, Normal affect Results - Vitals Vitals: Vital Signs - 24 hr 11/22/21 15:09 Temperature 36.4 C L Heart Rate 70 Respiratory 20 Rate Blood Pressure 123/74 O2 Saturation 96 Oxygen O2 Source [With Activity] Room air O2 Source [Without Activity] Room air O2 Source Room air - Rads (name of study) Left hip x-ray Radiology: Final report received, EMP read contemporaneously, See rad report Duplex US LLE. Radiology: Final report received, EMP read contemporaneously PD MEDICAL DECISION MAKING - ED course Complexity details: reviewed results, re-evaluated patient, considered differential, d/w patient, d/w family ED course: No acute findings on duplex ultrasound left lower extremity or on x-ray of the left hip and pelvis. He does have a ischial tuberosity fracture, but this is likely from his fall 3 weeks ago. His symptoms are consistent with IT band syndrome. He is starting physical therapy tomorrow. Recommend that he work with his physical therapist on this. Patient declines any pain medication here or for home. Patient and family counseled regarding signs and symptoms for which I believe and urgent re-evaluation would be necessary. Patient with good understanding of and agreement to plan and is comfortable going home at this time This document was made in part using voice recognition software. While efforts are made to proofread this document, sound alike and grammatical errors may occur. Departure - Departure Disposition: Home, Self Care Clinical Impression: ITB syndrome Qualifiers: Laterality: left Qualified Code(s): M76.32 - Iliotibial band syndrome, left leg Condition: Good Instructions: IT Band Syndrome About, IT Band Syndrome Tx Follow-Up: your,doctor in 1 week [Other] Comments: Your ultrasound does not show any evidence of a DVT. Your x-ray shows an ischial tuberosity fracture, this is likely from your fall. Your pain is consistent with IT band syndrome. You can talk to your physical therapist tomorrow about helping with this. Return if you worsen Discharge Date/Time: 11/22/21 15:40
--- NOTE | 2021-11-22 15:44 | XRAY Report ---
PROCEDURE: Femur 2V LT INDICATIONS: leg pain TECHNIQUE: 2 views of the femur were acquired. COMPARISON: None. FINDINGS: Bones: No fractures or dislocations. No suspicious bony lesions. Left hip arthroplasty is present as well as knee arthroplasty. All hardware is intact without evidence of hardware fracture or peripro sthetic loosening. Soft tissues: No suspicious soft tissue calcifications or masses. IMPRESSION: No visualized acute fracture or dislocation. However, occult injury cannot be excluded. Recommend shasta rt interval imaging follow-up in 7-10 days as clinically indicated for additional evaluation. Reviewed by: Morelia Muñoz MD on 11/22/2021 3:43 PM PDT Approved by: Morelia Muñoz MD on 11/22/2021 3:43 PM PDT Station ID: [id number]
--- NOTE | 2021-11-22 15:49 | Ultrasound Report ---
PROCEDURE: Duplex Ext Veins Left INDICATIONS: leg pain TECHNIQUE: Real-time imaging, as well as color and pulse Doppler interrogation, were performed of the lower extr emity deep veins from the inguinal ligament to the popliteal fossa. COMPARISON: None. FINDINGS: The deep veins are normally compressible, and free of intraluminal thrombus. Color and pu lse Doppler demonstrate normal phasic intraluminal flow. There is normal augmentation response to di stal compression maneuver. IMPRESSION: No evidence of deep vein thrombosis involving the left lower extremity. Reviewed by: Danette Zaldivar MD, PhD on 11/22/2021 3:48 PM PDT Approved by: Danette Zaldivar MD, PhD on 11/22/2021 3:48 PM PDT Station ID: [id number]
== END 2021-11-22 15:40 | disposition home or self-care (01) ==
LOC: ED 14:03
DX: M76.32 Iliotibial band syndrome, left leg (principal); Z96.642 Presence of left artificial hip joint
CPT/HCPCS: 99282; 99284

== ENCOUNTER 2021-12-05 17:00 | Outpatient (CLI) | payer MEDICARE ==
--- NOTE | 2021-12-05 18:18 | XRAY Report ---
PROCEDURE: Knee 3 View BILAT INDICATIONS: BILATERAL KNEE PX AFTER A FALL TECHNIQUE: 3 views of the bilateral knee(s) were acquired. COMPARISON: None. FINDINGS: Bones: Patient is status post bilateral total knee arthroplasty with anatomic bilateral knee alignme nt. No fracture or dislocation. No patellar subluxation. No gross hardware loosening or failure. No s uspicious bony lesions. Soft tissues: No joint effusion. No suspicious soft tissue calcifications. IMPRESSION: Prior bilateral total knee arthroplasty with anatomic alignment. No acute fracture or di slocation. No gross hardware complication. Reviewed by: Ernesto Moses MD on 12/05/2021 6:17 PM PDT Approved by: Ernesto Moses MD on 12/05/2021 6:17 PM PDT Station ID: [id number]
== END 2021-12-05 17:01 | disposition home or self-care (01) ==
LOC: DI.N 17:00
PROVIDERS: ATTEND Internal Medicine
DX: M25.562 Pain in left knee (principal); M25.561 Pain in right knee; Z96.653 Presence of artificial knee joint, bilateral

== ENCOUNTER 2022-03-19 09:03 | Outpatient (CLI) | payer MEDICARE ==
[2022-03-19 09:52] VITALS: BP 161/98
--- NOTE | 2022-03-19 09:52 | SLEEP CARE CONSULTATION ---
Information from patient questionnaire entered by Shamika Chi MA. I have reviewed and concur with the information entered by Shamika Chi MA. This document represents the service I personally performed and the decisions made by , Sabina Jaramillo ARNP. History of Present Illness Service Date and Time: 03/19/2022 0903 Reason for Visit: New patient (ONSET , NO PRIORS, ) Chief Complaint: reports: Snoring Date of Onset: 20 PLUS YEARS Usual bedtime: 11-1130 PM Time it takes to fall asleep: 1 MINUTE-30 MINUTES Snores at night: Yes Observed to quit breathing while asleep: No Sleeps alone due to snoring: No Number of times waking at night: 2-3 Reasons for waking at night: reports: Other (ROLL OVER ). denies: Choking, Snoring, Gasping for air Toss, Turn, or Twitch while sleeping: No Recalls having dreams: No Usually gets out of bed at: [id number] Feels refreshed in the morning: Yes Morning headache: No Sleepy or fatigued during the day: No Ever fallen asleep while driving: No Takes day naps: Yes (15 mins at lunchtime, sometimes) Prior sleep studies: No Additional HPI information: I had the pleasure of seeing SNEHAL NAVARRO today regarding the possibility of him having a sleep disorder. His current complaint is snoring. He states his tells him that he snores a lot, especially when on his back. He tries to sleep more on his side to reduce the snoring. She has told him that sometimes she is not sure he is breathing or not. - Parasomnia Symptoms Ever been unable to move upon waking from sleep: No Walks in sleep: No Talks in sleep: No Ever acted out dreams in sleep: No Ever felt weak in the knees when startled or emotional: No Bothered by creepy, crawly, restless sensations in legs: No Problems with memory or concentration: No Subjective Initial [place] Sleepiness Scale score: 2 (03/19/2022) Past Medical History Past Medical History: reports: Arthritis, Other (trigger finger on left hand; had 15 ft fall in Oct 22) Social History The patient's occupation is a RE. Patient is and lives in [place]. Have you smoked in the past 12 months: No Alcohol use: Yes Alcohol amount and frequency: 12 X YEARLY Caffeine use: No Family History Family history of sleep disordered breathing: No Allergies and Home Medications Known drug allergies: No Drug allergies reviewed: Yes (NKDA) Home medication list reviewed: Yes Allergy and home medication list: Allergies cat dander Adverse Reaction (Verified 11/22/21 15:14) Rash Medications: OVER THE COUNTER MULTI VITAMINS Glucosamine Turmeric Review of Systems Weight loss over past 5 years: 5 Cardiovascular: denies: high blood pressure Gastrointestinal: denies: heartburn Neurological: denies: headaches, head trauma Psychiatric: denies: anxiety, depression Ear/Nose/Throat: reports: wisdom teeth removed. denies: tonsillectomy Immunologic: reports: allergies to food or environment (cat dander) Physical Exam Vital signs obtained and entered by: Alejandro CHI CMA AAShwetaW Blood Pressure: 161/98 (RESP 18, PULSE 62, RIGHT) Heart Rate: 62 O2 Saturation: 97 (PAPER MASK) Height: 6 ft 2 in Weight: 226 lb (CLOTHES) Weight change since last visit: HEALTHY MEALS, PRE DIABETIC. Body Mass Index: 29.0 BMI Classification: Overweight Neck circumference: 17.25 (inches) Mouth and throat: narrow oropharynx Soft palate: normal Hard palate: normal Uvula: normal Uvula visualization: 25% Mallampati Class III Tongue: enlarged in size with teeth colmenares on lateral edges Tonsils: small Neck: normal w/o lymphadenopathy or thyromegaly Heart: regular rate and rhythm Lungs: clear bilaterally Impression and Plan 1. Suspected Obstructive Sleep Apnea-Hypopnea Syndrome, as suggested by a history of loud and irregular snoring and frequent awakening during the night. Narrow oropharynx and obesity are common predisposing factors for obstructive sleep apnea-hypopnea syndrome. I recommend proceeding to polysomnography to confirm the diagnosis and to assess severity. If the patient has significant sleep disordered breathing, a manual CPAP titration study will also be performed to find the optimal treatment pressure. I informed the patient of what the sleep studies involve and after some discussion, obtained agreement to proceed. The pathophysiology of obstructive sleep apnea-hypopnea syndrome was discussed with the patient and health risks of cardiovascular and cerebrovascular disease if not treated. Risks of drowsy driving discussed in detail and patient advised to avoid long distance driving and to hide puller at the first sign of drowsiness. Patient agreed to plan. * Schedule polysomnography * Avoid long distance driving or driving when feeling sleepy. * Avoid alcohol, sedative and muscle relaxant around bedtime. * Attempt to lose weight. * Review instructions provided by trained office staff on how to prepare for the sleep study. * Return for follow-up after sleep study completed. Counseling Topics: Weight loss health impact Visit Type: In Office Time Spent with Patient (minutes): 31 Provider Statement: I spent 100% of the Face to Face Visit with the patient with greater than 50% spent counseling the patient and coordination of care.
== END 2022-03-19 09:04 | disposition home or self-care (01) ==
LOC: SC 09:03
PROVIDERS: ATTEND Nurse Practitioner Family
DX: R06.83 Snoring (principal); G47.8 Other sleep disorders
CPT/HCPCS: 99203; G0463; 99212

== ENCOUNTER 2022-03-25 14:11 | Outpatient (CLI) | payer MEDICARE ==
--- NOTE | 2022-03-25 15:15 | MRI Report ---
PROCEDURE: Lumbar Spine W/O INDICATIONS: HIST OF TRAUMATIC VERTEBRAL FX TECHNIQUE: Noncontrast sagittal T1 spin echo and T2 fast echo, coronal T2, sagittal STIR, axial T1 and T2 fast s pin echo through the lumbar spine. COMPARISON: CT dated 07/31/2013 FINDINGS: Image quality: Excellent. Alignment and Curvature: 5 lumbar type vertebral bodies are present by CT. Moderate leftward curvatur e of the mid lumbar spine. Loss of normal lumbar lordosis. 3 mm of retrolisthesis of L1 on L2, L2 on L3, and L5 on S1. Bone Marrow: Marrow is of normal overall signal. Moderate wedging of T11 is present. Ill-defined low linear T1/T2 signal intensity within the T11 vertebral body, with moderate surrounding ill-defined S TIR signal elevation present. Moderate reactive signal within the endplates adjacent to the T10-T11, L2-L3 and L4-5 intervertebral discs. Spinal Cord: Conus medullaris terminates at the lower L1 level. Visualized cord demonstrates normal signal and size. Paraspinous Soft Tissues: No paravertebral masses. T12-L1: Moderate disc height loss and desiccation. Mild diffuse disc bulge. Mild facet and ligament flavum hypertrophy. Mild canal stenosis. Mild left foraminal stenosis. No right foraminal stenosis. L1-L2: Severe disc height loss and desiccation. Mild diffuse disc bulge. Mild facet and ligament f lavum hypertrophy. Mild canal stenosis. Mild bilateral foraminal stenosis L2-L3: Severe disc height loss and desiccation. Mild diffuse disc bulge. Mild facet and ligament f lavum hypertrophy. Mild canal stenosis. Mild bilateral foraminal stenosis. L3-L4: Moderate disc height loss and desiccation. Moderate diffuse disc bulge. Moderate facet and l igament flavum hypertrophy. Moderate canal stenosis. Moderate right and mild left foraminal stenosis. Right lateral recess stenosis associated with right L4 nerve root compression and deviation. L4-L5: Severe disc height loss and desiccation. Mild diffuse disc bulge/osteophyte. Mild facet and ligament flavum hypertrophy. Moderate canal stenosis. Moderate bilateral foraminal stenosis. L5-S1: Moderate disc height loss and desiccation. Mild diffuse disc bulge. Mild facet and ligament flavum hypertrophy. Mild canal stenosis. Mild right and moderate left foraminal stenosis. IMPRESSION: 1. Moderate subacute T11 compression fracture. 2. Multilevel degenerative disc and facet disease, in addition to epidural lipomatosis and ligamentum flavum hypertrophy. 3. Multilevel canal stenoses, worst at L3-L4 and L4-L5 where there is moderate canal stenosis. 4. Multilevel foraminal stenoses, worst at L3-L4, L4-L5, and L5-S1, where there are moderate foramina l stenoses. 5. Right lateral recess stenosis at L3-L4 associated with right L4 nerve root compression. Recommend correlation with conical symptoms to ascertain relevance of this finding. Reviewed by: Abiola Dias MD on 03/25/2022 3:13 PM PDT Approved by: Abiola Dias MD on 03/25/2022 3:13 PM PDT Station ID: [id number]
== END 2022-03-25 14:12 | disposition home or self-care (01) ==
LOC: DI 14:11
PROVIDERS: ATTEND Internal Medicine
DX: S22.089A Unspecified fracture of T11-T12 vertebra, initial encounter for closed fracture (principal); M51.16 Intervertebral disc disorders with radiculopathy, lumbar region; M48.061 Spinal stenosis, lumbar region without neurogenic claudication; M47.816 Spondylosis without myelopathy or radiculopathy, lumbar region; M51.37 Other intervertebral disc degeneration, lumbosacral region; M48.07 Spinal stenosis, lumbosacral region; M47.817 Spondylosis without myelopathy or radiculopathy, lumbosacral region; M47.26 Other spondylosis with radiculopathy, lumbar region

== ENCOUNTER 2022-03-28 20:39 | Outpatient (CLI) | payer MEDICARE | END 2022-03-28 20:40 | disposition home or self-care (01) | LOC: SC 20:39 | PROVIDERS: ATTEND Nurse Practitioner Family | DX: G47.33 Obstructive sleep apnea (adult) (pediatric) (principal); G47.61 Periodic limb movement disorder | CPT/HCPCS: 95810 ==

== ENCOUNTER 2022-10-01 09:00 | Outpatient (CLI) | payer MEDICARE ==
[2022-10-01 09:15] LABS: BASOPHILS % (AUTO) 0.2 %; EOSINOPHILS # (AUTO) 0.2 10^3/uL (0.0-0.7); HCT - HEMATOCRIT 43.4 % (42.0-52.0); HGB - HEMOGLOBIN 14.2 g/dL (14.0-18.0); LYMPHOCYTES # (AUTO) 1.6 10^3/uL (1.5-3.5); LYMPHOCYTES % (AUTO) 35.7 %; MEAN CORPUSCULAR HGB CONC 32.7 g/dL (32.0-36.0); MEAN CORPUSCULAR VOLUME 100.9 fL (80.0-94.0); MEAN PLATELET VOLUME 10.6 fL (7.4-11.4); MONOCYTES # (AUTO) 0.3 10^3/uL (0.0-1.0); NEUTROPHILS # (AUTO) 2.4 10^3/uL (1.5-6.6); NEUTROPHILS % (AUTO) 53.9 %; PLT - PLATELET COUNT 140 10^3/uL (130-450); WHITE BLOOD COUNT 4.5 x10^3/uL (4.8-10.8)
[2022-10-01 09:32] LABS: ALBUMIN 4.4 g/dL (3.2-5.5); ALBUMIN/GLOBULIN RATIO 1.3 (1.0-2.2); ALKALINE PHOSPHATASE 57 IU/L (42-121); ALT ALANINE AMINOTRANSFERASE 18 IU/L (10-60); AST ASPARTATE AMINOTRANSFERASE 15 IU/L (10-42); BILIRUBIN,TOTAL 0.7 mg/dL (0.2-1.0); BUN - BLOOD UREA NITROGEN 23 mg/dL (6-20); CALCIUM 9.4 mg/dL (8.5-10.3); CARBON DIOXIDE - CO2 28 mmol/L (21-32); CHLORIDE 100 mmol/L (101-111); CHOL/HDL RATIO 4.1 (<5.0); CHOLESTEROL 174 mg/dL; CREATININE 0.8 mg/dL (0.6-1.2); GFR - MDRD 94 (>89); GLUCOSE 103 mg/dL (70-100); HDL CHOLESTEROL 42 mg/dL; POTASSIUM 4.3 mmol/L (3.5-5.0); SODIUM 137 mmol/L (135-145); TOTAL PROTEIN 7.9 g/dL (6.7-8.2); TRIGLYCERIDES 30 mg/dL
[2022-10-01 09:43] LABS: THYROID STIMULATING HORMONE 0.61 uIU/mL (0.34-5.60)
[2022-10-01 11:40] LABS: ESTIMATED AVERAGE GLUCOSE 126 mg/dL (70-100)
== END 2022-10-01 09:01 | disposition home or self-care (01) ==
LOC: LAB 09:00
PROVIDERS: ATTEND Internal Medicine
DX: E78.5 Hyperlipidemia, unspecified (principal); R41.3 Other amnesia; R73.01 Impaired fasting glucose; R00.8 Other abnormalities of heart beat
CPT/HCPCS: 36415; 80053; 80061; 82607; 83036; 83721; 84443; 85025

== ENCOUNTER 2022-10-07 12:46 | Outpatient (CLI) | payer MEDICARE ==
--- NOTE | 2022-10-07 14:10 | MRI Report ---
PROCEDURE: BRAIN WO INDICATIONS: MEMORY IMPAIRMENT TECHNIQUE: Noncontrast axial T1 spin echo, axial T2 fast spin echo, sagittal and axial FLAIR, coronal T2 fast sp in echo, axial gradient echo, axial diffusion and ADC through the brain. COMPARISON: None. FINDINGS: Image quality: Excellent. The ventricular system and cortical sulci demonstrate atrophy, consistent for patient's stated age. There are areas of hyperintense T2/FLAIR signal in the periventricular and subcortical white matter. There is no acute intra or extra-axial fluid collection. No acute hemorrhage, mass lesion or midlin e shift. Brainstem is unremarkable. There are no areas of restricted diffusion. There is a 4 mm fo cus of hypodensity in gradient sequence in the left temporal lobe possibly related to small angioma. Globes are symmetrical. Osseous structures are intact. Sinuses demonstrate prominent mucosal thickeni ng in the maxillary sinuses with scattered areas of mucosal thickening within the remaining sinuses. No fluid levels. IMPRESSION: 1. No acute intracranial process. 2. Moderate atrophy and chronic microvascular ischemic changes. Reviewed by: Morelia Muñoz MD on 10/07/2022 2:08 PM PST Approved by: Morelia Muñoz MD on 10/07/2022 2:08 PM PST Station ID: [id number]
== END 2022-10-07 12:47 | disposition home or self-care (01) ==
LOC: DI 12:46
PROVIDERS: ATTEND Internal Medicine
DX: R41.3 Other amnesia (principal)

== ENCOUNTER 2022-12-06 08:34 | Outpatient (CLI) | payer MEDICARE ==
[2022-12-06 09:28] VITALS: BP 126/78
--- NOTE | 2022-12-06 09:28 | SLEEP CARE CONSULTATION ---
Information from patient questionnaire entered by Bud Lamar. I have reviewed and concur with the information entered by Bud Lamar. This document represents the service I personally performed and the decisions made by me, Sabina Jaramillo ARNP. History of Present Illness Service Date and Time: 12/06/2022 0834 Previous diagnosis: Severe, Obstructive Sleep Apnea-Hypopnea Syndrome AHI: 34.5 (03/2022) Reason for follow up: other (F/U PT IS RECONSIDERING BEING PUT ON CPAP) Accompanied by: Spouse Prior sleep studies: Yes Type of Sleep Study: Polysomnography (F/U POLY, 03/28/2022 [facility], pos,) HPI additional information: SNEHAL NAVARRO was diagnosed to have severe, AHI 34.5, obstructive sleep apnea- hypopnea syndrome and returned today for seven month follow up to discuss CPAP therapy. He is accompanied by his to talk about his last visit and his last sleep study. Sleep Study - Results Type of Sleep Study: Polysomnography (F/U POLY, 03/28/2022 [facility], pos,) Prior sleep studies: No Subjective Initial [place] Sleepiness Scale score: 2 (03/19/2022) Current [place] Sleepiness Scale score: 3 (12/06/22) Allergies and Home Medications Known drug allergies: No Drug allergies reviewed: Yes Home medication list reviewed: Yes (no changes) Allergy and home medication list: Allergies cat dander Adverse Reaction (Verified 12/05/22 10:36) Rash Review of Systems Review of systems same as previous: Yes (no changes) Physical Exam Vital signs obtained and entered by: BUD Hou MA Blood Pressure: 126/78 (LEFT ARM) Cuff size: regular Heart Rate: 76 O2 Saturation: 99 Height: 6 ft 2 in Weight: 233 lb 3.2 oz Body Mass Index: 29.9 BMI Classification: Overweight Impression and Plan 1. Obstructive Sleep Apnea-Hypopnea Syndrome, severe. He comes back to follow up with his last sleep study and would like to try the CPAP. His last sleep study was done in March of 2022. As long as his insurance will approve it, we will start the patient on nasal autoCPAP therapy with pressure set at 4-15 cmH2O. Compliance guidelines also reviewed. A copy of compliance guidelines will be given for reference at check out. If his insurance requires a new study, this will be ordered and completed prior to starting him on CPAP. 2. Overweight, unspecified. Currently patients BMI is 29.9. Obesity increases the risk of apnea, CPAP pressure requirements and overall health risks especially cardiovascular and diabetes. Thus patient is advised to lose weight. * Nasal auto CPAP therapy, pressure at 4-15 cm H2O. * Attempt to lose weight. * Avoid alcohol consumption near bedtime. * The patient is again cautioned about driving until sleepiness completely resolves. * Return one month after CPAP obtained. I will assess response to therapy and compliance at that time. Counseling Topics: Weight loss health impact Prescriptions: Auto CPAP Visit Type: In Office Other Participants: Spouse/Significant Other Time Spent with Patient (minutes): 23 Provider Statement: I spent 100% of the Face to Face Visit with the patient with greater than 50% spent counseling the patient and coordination of care.
== END 2022-12-06 08:35 | disposition home or self-care (01) ==
LOC: SC 08:34
PROVIDERS: ATTEND Nurse Practitioner Family
DX: G47.33 Obstructive sleep apnea (adult) (pediatric) (principal); E66.3 Overweight; Z68.29 Body mass index [BMI] 29.0-29.9, adult
CPT/HCPCS: 99213; G0463; 99212

== ENCOUNTER 2023-03-12 09:18 | Outpatient (CLI) | payer MEDICARE ==
--- NOTE | 2023-03-12 09:57 | Sleep Patient Instructions ---
Sleep Center Visit Summary - Patient Visit Information Reason for Visit: First compliance visit for Cpap therapy - Patient Instructions Additional Instructions: You were here for follow up of CPAP therapy. You will be continued on CPAP therapy with pressure at 4-8 cmH2O. Please let us know if the pressure change is uncomfortable and we can make further adjustments of the pressure. You should follow up with sleep care in 1-2 months months. You may contact us sooner for any questions or concerns. - Clinic Information Contact: [facility] [address] [place] [address] [email or web address] T: [phone]
--- NOTE | 2023-03-12 10:03 | SLEEP CARE CONSULTATION ---
Information from patient questionnaire entered by Alyssa Lamar. I have reviewed and concur with the information entered by Alyssa Lamar. This document represents the service I personally performed and the decisions made by , Sabina Jaramillo ARNP. History of Present Illness Service Date and Time: 03/12/2023917 Previous diagnosis: Severe, Obstructive Sleep Apnea-Hypopnea Syndrome AHI: 34.5 (03/2022) Reason for follow up: first compliance Equipment type: CPAP (RESMED Airsense 11, 11/2022) Equipment obtained from: Other ([facility], got initial supplies) Mask style: Nasal Backup mask available: No (will keep old mask when replaced) Last cushion change: 2 months Prior sleep studies: No Type of Sleep Study: Polysomnography (F/U POLY, 03/28/2022 [facility], pos,) HPI additional information: SNEHAL NAVARRO was diagnosed to have severe, AHI 34.5, obstructive sleep apnea- hypopnea syndrome and returned today for CPAP therapy first compliance follow- up. Sleep Study - Results Type of Sleep Study: Polysomnography (F/U POLY, 03/28/2022 [facility], pos,) Prior sleep studies: No CPAP Compliance Data - Data Reviewed with Patient Average duration of nightly device use: 5 HRS 42 MIN Compliance rate %: 100 (02/12/23-03/10/23; days used) Current pressure setting (cmH2O): 4-7 (median 6.4, avg 6.8, max 6.8) Average residual AHI: 7.7 Central apnea: 0.5 Obstructive apnea: 5.6 Hypopnea: 1.4 Subjective Patient concerns: reports: dry mouth, nose, throat (sometimes). denies: aerophagia, mask discomfort, air blowing in eyes, mask leak noise, condensation in mask/hose, nasal congestion, epistaxis Observed to snore while using device: No Current pressure setting perceived as: comfortable On therapy, patient: reports: sleeping better, awakening more refreshed, being more awake and alert during the day, more rested overall. denies: drowsiness while driving Initial [place] Sleepiness Scale score: 2 (03/19/2022) Current [place] Sleepiness Scale score: 3 (03/12/23) Allergies and Home Medications Known drug allergies: No Drug allergies reviewed: Yes Home medication list reviewed: Yes (no changes) Allergy and home medication list: Allergies augusta mensah Adverse Reaction (Verified 03/11/23 13:09) Rash Review of Systems Review of systems same as previous: Yes (no changes) Physical Exam Vital signs obtained and entered by: ALYSSA Hou MA Blood Pressure: 118/74 (LEFT ARM) Cuff size: regular Heart Rate: 77 O2 Saturation: 95 Height: 6 ft 2 in Weight: 222 lb 6.4 oz Body Mass Index: 28.5 BMI Classification: Overweight Impression and Plan 1. Obstructive Sleep Apnea-Hypopnea Syndrome, severe, with good treatment compliance and fair apnea control with elevated residual AHI. On CPAP therapy, the patient has better sleep quality and is more rested overall. He feels the last pressure change made it more comfortable. We discussed a titration study but will try another adjustment of his pressure first. The patients pressure will be changed to autoCPAP 4-8 cmH20 for elevation of residual AHI. Patient advised to contact me if pressure change is uncomfortable so that it can be adjusted. Goals for apnea control discussed. Patient's apnea severity and rationale for treatment to reduce apnea, improve sleep quality and reduce cardiovascular and cerebrovascular events was reviewed. 2. Overweight, unspecified. Currently patients BMI is 28.5. Obesity increases the risk of apnea, CPAP pressure requirements and overall health risks especially cardiovascular and diabetes. Thus patient is advised to lose weight. * Change auto CPAP pressure to 4-8 cmH2O * Notify me if snoring with mask or feeling that the pressure is too much or too little * Attempt to lose weight * Call this office if any problems using CPAP * Return for follow up in 1-2 months, or sooner if concerns arise Counseling Topics: Spare mask, Weight loss health impact Visit Type: In Office Time Spent with Patient (minutes): 22 Provider Statement: I spent 100% of the Face to Face Visit with the patient with greater than 50% spent counseling the patient and coordination of care.
[2023-03-12 10:07] VITALS: BP 118/74
== END 2023-03-12 09:19 | disposition home or self-care (01) ==
LOC: SC 09:18
PROVIDERS: ATTEND Nurse Practitioner Family
DX: G47.33 Obstructive sleep apnea (adult) (pediatric) (principal); E66.3 Overweight; Z68.28 Body mass index [BMI] 28.0-28.9, adult
CPT/HCPCS: 99213; G0463; 99212

== ENCOUNTER 2023-04-30 08:33 | Outpatient (CLI) | payer MEDICARE ==
--- NOTE | 2023-04-30 09:12 | Sleep Patient Instructions ---
Sleep Center Visit Summary - Patient Visit Information Reason for Visit: 6 week followup - Patient Instructions Additional Instructions: You were here for follow up of CPAP therapy. You will be continued on CPAP therapy with pressure at 4-8 cmH2O. You should follow up with sleep care in 3 months. You may contact us sooner for any questions or concerns. - Clinic Information Contact: [facility] [address] [place] [id number] [email or web address] T: [phone]
--- NOTE | 2023-04-30 09:15 | SLEEP CARE CONSULTATION ---
Information from patient questionnaire entered by Alyssa Lamar. I have reviewed and concur with the information entered by Alyssa Lamar. This document represents the service I personally performed and the decisions made by , Sabina Jaramillo ARNP. History of Present Illness Service Date and Time: 04/30/2023 0833 Previous diagnosis: Severe, Obstructive Sleep Apnea-Hypopnea Syndrome AHI: 34.5 (03/2022) Reason for follow up: other (6 WEEK F/U) Equipment type: CPAP (RESMED Airsense 11, 11/2022) Equipment obtained from: Other ([facility], getting supplies) Mask style: Nasal (medium wide cushion) Backup mask available: Yes (other mask) Last cushion change: 2 weeks ago Prior sleep studies: No Type of Sleep Study: Polysomnography (F/U POLY, 03/28/2022 [facility], pos,) HPI additional information: SNEHAL NAVARRO was diagnosed to have severe, AHI 34.5, obstructive sleep apnea- hypopnea syndrome and returned today for CPAP therapy six week follow-up. Sleep Study - Results Type of Sleep Study: Polysomnography (F/U POLY, 03/28/2022 [facility], pos,) Prior sleep studies: No CPAP Compliance Data - Data Reviewed with Patient Average duration of nightly device use: 5 HRS 40 MIN Compliance rate %: 95 (03/17/2023-04/27/2023; 42/42 days used) Current pressure setting (cmH2O): 4-8 (median 6.7, avg 7.8, max 7.8) Average residual AHI: 5.9 Central apnea: 1.9 Obstructive apnea: 2.6 Hypopnea: 1.2 Subjective Patient concerns: reports: dry mouth, nose, throat (dry mouth, slight; occasional). denies: aerophagia, mask discomfort, air blowing in eyes, mask leak noise, condensation in mask/hose, nasal congestion, epistaxis Observed to snore while using device: No Current pressure setting perceived as: comfortable On therapy, patient: reports: sleeping better, awakening more refreshed, being more awake and alert during the day, more rested overall. denies: drowsiness while driving Initial [place] Sleepiness Scale score: 2 (03/19/2022) Current [place] Sleepiness Scale score: 4 Allergies and Home Medications Known drug allergies: No Drug allergies reviewed: Yes Home medication list reviewed: Yes (no changes) Allergy and home medication list: Allergies augusta mensah Adverse Reaction (Verified 04/29/23 14:29) Rash Review of Systems Review of systems same as previous: Yes (no changes) Physical Exam Vital signs obtained and entered by: Sabina Chairez NP Blood Pressure: 129/86 Cuff size: wrist (right) Heart Rate: 72 O2 Saturation: 96 Height: 6 ft 2 in Weight: 224 lb Body Mass Index: 28.8 BMI Classification: Overweight Impression and Plan 1. Obstructive Sleep Apnea-Hypopnea Syndrome, severe, with good treatment compliance and fair apnea control with minimal elevation of residual AHI. On CPAP therapy, the patient has better sleep quality and is more rested overall. He has minimal elevation of his AHI at 5.9. Patient is comfortable with current pressures and he does have significant improvement of his sleep apnea although it is minimally ineffective at current settings. I will make no adjustments today and follow-up with him in 3 months. He is to let me know of any drastic changes to his AHI. Goals for apnea control discussed. Patient's apnea severity and rationale for treatment to reduce apnea, improve sleep quality and reduce cardiovascular and cerebrovascular events was reviewed. 2. Overweight, unspecified. Currently patients BMI is 28.8. Obesity increases the risk of apnea, CPAP pressure requirements and overall health risks especially cardiovascular and diabetes. Thus patient is advised to lose weight. * Continue auto CPAP pressure at 4-8 cmH2O * Notify me if snoring with mask or feeling that the pressure is too much or too little * Attempt to lose weight * Call this office if any problems using CPAP * Return for follow up in 3 months, or sooner if concerns arise Counseling Topics: Spare mask, Weight loss health impact Visit Type: In Office Time Spent with Patient (minutes): 16 Provider Statement: I spent 100% of the Face to Face Visit with the patient with greater than 50% spent counseling the patient and coordination of care.
[2023-04-30 09:26] VITALS: BP 129/86; O2SAT 96
== END 2023-04-30 08:34 | disposition home or self-care (01) ==
LOC: SC 08:33
PROVIDERS: ATTEND Nurse Practitioner Family
DX: G47.33 Obstructive sleep apnea (adult) (pediatric) (principal)
CPT/HCPCS: 99212; G0463

== ENCOUNTER 2023-07-30 08:09 | Outpatient (CLI) | payer MEDICARE ==
--- NOTE | 2023-07-30 08:39 | Sleep Patient Instructions ---
Sleep Center Visit Summary - Patient Visit Information Reason for Visit: 3 month followup for PAP therapy - Patient Instructions Additional Instructions: You were here for follow up of CPAP therapy. You will be continued on CPAP therapy with pressure at 4-8 cmH2O. You should follow up with sleep care in 12 months. You may contact us sooner for any questions or concerns. - Clinic Information Contact: [facility] [address] [place] [address] [email or web address] T: [phone]
--- NOTE | 2023-07-30 08:43 | SLEEP CARE CONSULTATION ---
Information from patient questionnaire entered by Alyssa Lamar. I have reviewed and concur with the information entered by Alyssa Lamar. This document represents the service I personally performed and the decisions made by , Sabina Jaramillo ARNP. History of Present Illness Service Date and Time: 07/30/2023 0809 Previous diagnosis: Severe, Obstructive Sleep Apnea-Hypopnea Syndrome AHI: 34.5 (03/2022) Reason for follow up: three month (F/U) Equipment type: CPAP (RESMED Airsense 11, 11/2022) Equipment obtained from: Other ([facility], getting supplies) Mask style: Nasal Backup mask available: No Last cushion change: 3 months or more Prior sleep studies: No Type of Sleep Study: Polysomnography (F/U POLY, 03/28/2022 [facility], pos,) HPI additional information: SNEHAL NAVARRO was diagnosed to have severe, AHI 34.5, obstructive sleep apnea- hypopnea syndrome and returned today for CPAP therapy three month follow-up. 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 denies: aerophagia, mask discomfort, air blowing in eyes, mask leak noise, condensation in mask/hose, nasal congestion, epistaxis Observed to snore while using device: No Current pressure setting perceived as: comfortable On therapy, patient: reports: sleeping better, awakening more refreshed, being more awake and alert during the day, more rested overall. denies: drowsiness while driving Initial [place] Sleepiness Scale score: 2 (03/19/2022) Current [place] Sleepiness Scale score: 2 (07/30/23) Allergies and Home Medications Known drug allergies: No Drug allergies reviewed: Yes Home medication list reviewed: Yes (no changes) Allergy and home medication list: Allergies cat dander Adverse Reaction (Verified 07/29/23 12:39) Rash Review of Systems Review of systems same as previous: Yes (no changes) Physical Exam Vital signs obtained and entered by: ALYSSA Hou MA Blood Pressure: 130/80 (LEFT ARM) Cuff size: regular Heart Rate: 78 O2 Saturation: 95 Height: 6 ft 2 in Weight: 224 lb 12.8 oz Body Mass Index: 28.8 BMI Classification: Overweight Impression and Plan 1. Obstructive Sleep Apnea-Hypopnea Syndrome, severe, with good treatment compliance and fair apnea control with elevated residual AHI. On CPAP therapy, the patient has better sleep quality and is more rested overall. Snehal's AHI is still slightly elevated but at higher pressures he has more central apneas. He feels the pressure is comfortable and he is sleeping well and waking up feeling refreshed. No changes will be made to his pressure today and we will follow-up with him next year. He is to let me know if he notices a trend of his AHI increasing. Patient's apnea severity and rationale for treatment to reduce apnea, improve sleep quality and reduce cardiovascular and cerebrovascular events was reviewed. 2. Overweight, unspecified. Currently patients BMI is 28.8. Obesity increases the risk of apnea, CPAP pressure requirements and overall health risks especial ly cardiovascular and diabetes. Thus patient is advised to lose weight. * Continue auto CPAP pressure at 4-8 cmH2O * Notify me if snoring with mask or feeling that the pressure is too much or too little * Attempt to lose weight * Call this office if any problems using CPAP * Return for follow up in 12 months, or sooner if concerns arise Counseling Topics: Spare mask, Weight loss health impact Follow up with Sleep Care in: 1 year Visit Type: In Office Time Spent with Patient (minutes): 20 Provider Statement: I spent 100% of the Face to Face Visit with the patient with greater than 50% spent counseling the patient and coordination of care.
[2023-07-30 08:46] VITALS: BP 130/80; O2SAT 95
== END 2023-07-30 08:10 | disposition home or self-care (01) ==
LOC: SC 08:09
PROVIDERS: ATTEND Nurse Practitioner Family
DX: G47.33 Obstructive sleep apnea (adult) (pediatric) (principal); E66.3 Overweight; Z68.28 Body mass index [BMI] 28.0-28.9, adult
CPT/HCPCS: 99213; G0463; 99212

== ENCOUNTER 2023-09-22 09:52 | Outpatient (CLI) | payer MEDICARE ==
[2023-09-22 12:32] LABS: BASOPHILS % (AUTO) 0.4 %; EOSINOPHILS # (AUTO) 0.1 10^3/uL (0.0-0.7); EOSINOPHILS % (AUTO) 1.9 %; HCT - HEMATOCRIT 40.7 % (42.0-52.0); HGB - HEMOGLOBIN 13.6 g/dL (14.0-18.0); LYMPHOCYTES # (AUTO) 1.2 10^3/uL (1.5-3.5); LYMPHOCYTES % (AUTO) 23.2 %; MEAN CORPUSCULAR HEMOGLOBIN 33.5 pg (27.0-31.0); MEAN CORPUSCULAR HGB CONC 33.4 g/dL (32.0-36.0); MEAN CORPUSCULAR VOLUME 100.2 fL (80.0-94.0); MEAN PLATELET VOLUME 11.8 fL (7.4-11.4); MONOCYTES # (AUTO) 0.3 10^3/uL (0.0-1.0); MONOCYTES % (AUTO) 6.2 %; NEUTROPHILS # (AUTO) 3.6 10^3/uL (1.5-6.6); NEUTROPHILS % (AUTO) 68.1 %; PLT - PLATELET COUNT 137 10^3/uL (130-450); RED BLOOD COUNT 4.06 10^6/uL (4.70-6.10); RED CELL DISTRIBUTION WIDTH 14.4 % (12.0-15.0); WHITE BLOOD COUNT 5.3 x10^3/uL (4.8-10.8)
[2023-09-22 12:43] LABS: ESTIMATED AVERAGE GLUCOSE 120 mg/dL (70-100); HEMOGLOBIN A1c% 5.8 % (4.27-6.07)
[2023-09-22 12:51] LABS: ALBUMIN 4.1 g/dL (3.2-5.5); ALBUMIN/GLOBULIN RATIO 1.3 (1.0-2.2); ALKALINE PHOSPHATASE 51 IU/L (42-121); ALT ALANINE AMINOTRANSFERASE 15 IU/L (10-60); AST ASPARTATE AMINOTRANSFERASE 12 IU/L (10-42); BILIRUBIN,TOTAL 0.6 mg/dL (0.2-1.0); BUN - BLOOD UREA NITROGEN 27 mg/dL (6-20); CALCIUM 9.6 mg/dL (8.5-10.3); CARBON DIOXIDE - CO2 29 mmol/L (21-32); CHLORIDE 104 mmol/L (101-111); CHOL/HDL RATIO 3.7 (<5.0); CHOLESTEROL 148 mg/dL; CREATININE 0.8 mg/dL (0.6-1.3); GFR - MDRD 93 (>89); GLUCOSE 95 mg/dL (74-104); HDL CHOLESTEROL 40 mg/dL; LDL CHOLESTEROL,CALCULATED 92 mg/dL; LDL/HDL RATIO 2.3 (<3.6); POTASSIUM 4.1 mmol/L (3.5-4.5); SODIUM 139 mmol/L (135-145); TOTAL PROTEIN 7.3 g/dL (6.4-8.9); TRIGLYCERIDES 82 mg/dL (48-352); VLDL CHOLESTEROL 16 mg/dL
[2023-09-22 13:03] LABS: THYROID STIMULATING HORMONE 0.69 uIU/mL (0.34-5.60)
== END 2023-09-22 09:53 | disposition home or self-care (01) ==
LOC: LAB.N 09:52
PROVIDERS: ATTEND Internal Medicine
DX: E78.5 Hyperlipidemia, unspecified (principal); R73.01 Impaired fasting glucose; R41.3 Other amnesia
CPT/HCPCS: 36415; 80053; 80061; 83036; 83721; 84443; 85025

== ENCOUNTER 2024-03-15 10:18 | Outpatient (CLI) | payer MEDICARE | END 2024-03-15 10:19 | disposition home or self-care (01) | LOC: RT 10:18 | PROVIDERS: ATTEND Surgery | DX: Z01.810 Encounter for preprocedural cardiovascular examination (principal); K40.90 Unilateral inguinal hernia, without obstruction or gangrene, not specified as recurrent | CPT/HCPCS: 93005 ==

== ENCOUNTER 2024-04-02 08:00 | Outpatient (CLI) | payer MEDICARE ==
[2024-04-02 12:28] LABS: THYROID STIMULATING HORMONE 0.53 uIU/mL (0.34-5.60)
== END 2024-04-02 23:59 | disposition home or self-care (01) ==
LOC: LAB.N 08:00
PROVIDERS: ATTEND Internal Medicine Cardiovascular Disease
DX: I48.92 Unspecified atrial flutter (principal)
CPT/HCPCS: 36415; 84439; 84443

== ENCOUNTER 2024-04-27 15:02 | Emergency (ER) | payer MEDICARE ==
[2024-04-27] MEDS: TETANUS/DIPHTHERIA/PERTUSSIS 0.5 ML SYRINGE IM ONE (15:27)
[2024-04-27] MEDS: lidocaine 1% 20 ML MDV SUBQ ONE (15:28)
--- NOTE | 2024-04-27 15:29 | ED Physician Documentation ---
History of Present Illness - Stated complaint Stated Complaint: LT FINGER LAC - Chief complaint Chief Complaint: Laceration - Additonal information Additional information: Patient 78-year-old male on Xarelto for history of atrial fibrillation presents to the emergency department with left finger laceration. Patient was using a table saw and cut it twice with a table cutter. Patient unsure of when his last tetanus was. Patient denies any significant contamination. Injury occurred shortly prior to arrival. Patient has only been on Xarelto for a few weeks at this time.Patient is right-handed. PD PAST MEDICAL HISTORY - Past Medical History Cardiovascular: Atrial flutter, Other Respiratory: Sleep apnea, CPAP use Endocrine/Autoimmune: None GI: Colon polyps : Benign prostate hypertrophy HEENT: Chronic vision loss, Chronic sinusitis Psych: None Musculoskeletal: Osteoarthritis Derm: None - Past Surgical History Past Surgical History: Yes General: Appendectomy Ortho: Hip replacement, Knee replacement - Present Medications Home Medications: Ambulatory Orders Medication Instructions Recorded Confirmed Glucos Sul 2Kcl/MSM/Chond/C/Mn 1 each PO DAILY 03/16/19 04/27/24 [Glucosamine Chondroitin Cap] Multivitamin [Daily Multiple 1 each PO DAILY 03/16/19 04/27/24 Vitamin] Fluticasone [Flonase] 1 sprays SHAKIR BID PRN 03/12/24 04/27/24 Tamsulosin [Flomax] 0.4 mg PO DAILY 03/12/24 04/27/24 Rivaroxaban [Xarelto] 20 mg PO DAILY 04/27/24 04/27/24 - Allergies Allergies/Adverse Reactions: Allergies Allergy/AdvReac Type Severity Reaction Status Date / Time cat dander AdvReac Rash Verified 04/27/24 15:09 - Social History Does the pt smoke?: No Smoking Status: Never smoker Does the pt drink ETOH?: No Does the pt have substance abuse?: No - Immunizations Immunizations are current?: Yes PD ED PE NORMAL - Vitals Vital signs reviewed: Yes - General General: Alert and oriented X 3 - HEENT HEENT: Atraumatic - Cardiac Cardiac: RRR, No gallop - Respiratory Respiratory: No respiratory distress, Clear bilaterally - Neuro Neuro: Alert and oriented X 3 - Free text exam Free text exam: Laceration to left ring finger on distal tip shows to linear and irregular lacerations to distal finger sensation intact to distal tip with full range of motion at DIP and PIP joints as well as MCP joints. Good capillary refill in place there does appear to be persistent bleeding from wounds here in emergency department. No significant contamination but wounds do appear deep. Approximately 2 mm in depth on examination. Results - Vitals Vitals: Vital Signs - 24 hr 04/27/24 04/27/24 15:05 17:33 Temperature 35.9 C L 37.0 C Heart Rate 88 78 Respiratory 18 18 Rate Blood Pressure 149/102 H 123/87 H O2 Saturation 97 99 Oxygen O2 Source [] Room air O2 Source [] Room air O2 Source Room air - Rads (name of study) x-ray hand Relevant Findings:: EMP independent interpretation of test Procedures - Laceration (location) left ring finger Wound type: Linear, Irregular Neurovascular status: Sensory intact, Motor intact, Vascular intact Tendon involvement: Tendon intact Anesthesia: Lidocaine 1% Wound preparation: Irrigated copiously NS Skin layer closure: Nylon, Dermabond (Small amount of Dermabond applied as there is an area of missing skin that made it difficult to bring laceration together and given patient was on Xarelto bleeding was still persistent after all sutures have been completed.), Sutures - enter # (7) Other: Patient tolerated well, No complications, Tetanus booster given PD Medical Decision Making - ED course Complexity details: reviewed old records, reviewed results ED course: Patient is a 78-year-old male presenting to the emergency department after laceration to left fourth digit using a table saw. Injury occurred shortly prior to arrival and he came straight to emergency department. Patient is on Xarelto. Unsure of last tetanus shot. Patient's tetanus was updated here in emergency department as he was unsure of his last date. Wound was thoroughly cleaned here in emergency department. No signs of foreign bodies on examination. He remains neurovascularly intact to distal tip of fourth ring finger. There is also appears to be small abrasion to middle finger of left hand as well or along the distal tip but no signs of significant bleeding on examination. Patient remains neurovascularly intact in digits 1 through 5 of left hand. Radial pulse 2+. Full range of motion to DIP and PIP joints of digits 1 through 5 as well on examination and equal strength throughout. X-ray obtained to evaluate for possible fracture secondary to injury however no appreciable fracture only laceration no signs of retained foreign bodies on x- ray. Wound was repaired with 5-0 nylon sutures with [address] Patient tolerated procedure well after finger block was performed. Patient instructed to keep wound clean and dry to have sutures removed in 14 days and to watch for any redness swelling warmth fevers or discharge from the wound. Patient understands and is agreeable with this plan. He will return with any of the symptoms listed above. Departure - Departure Disposition: 01 Home, Self Care Clinical Impression: Laceration of ring finger, Laceration Condition: Good Instructions: ED Laceration All Follow-Up: Mayo Chicas MD [Primary Care Provider] - 05/11/24 Ben Schwartz MD [Physician No Access] - Comments: You were seen here in the emergency department for your left fourth digit lacer ation you had 7 sutures placed. Wound was wrapped here in the emergency department. Watch for any redness swelling warmth fevers discharge return with any of the symptoms.. Have sutures removed in 14 days. I have given you the number for hand surgery follow-up if you call their number for reevaluation. Forms: PCP List Discharge Date/Time: 04/27/24 17:34
--- NOTE | 2024-04-27 17:04 | XRAY Report ---
PROCEDURE: Finger(s) LT INDICATIONS: lac to fourth digit TECHNIQUE: AP hand, 2 views of the fourth finger(s) acquired. COMPARISON: None. FINDINGS: Bones: No fractures or dislocations. Degenerative changes throughout the hand, severe involving the first CMC joint. No suspicious bony lesions. Soft tissues: No suspicious soft tissue calcifications or masses. Fourth digit laceration. IMPRESSION: Fourth digit laceration. No acute fractures are seen. Reviewed by: Kendall Sims MD on 04/27/2024 5:03 PM PDT Approved by: Kendall Sims MD on 04/27/2024 5:03 PM PDT Station ID: [id number]
[2024-04-27 17:35] VITALS: BP 123/87; O2SAT 99
== END 2024-04-27 17:34 | disposition home or self-care (01) ==
LOC: ED 15:02
DX: S61.215A Laceration without foreign body of left ring finger without damage to nail, initial encounter (principal); S60.413A Abrasion of left middle finger, initial encounter; W27.0XXA Contact with workbench tool, initial encounter; Y93.89 Activity, other specified; Y92.009 Unspecified place in unspecified non-institutional (private) residence as the place of occurrence of the external cause; I48.91 Unspecified atrial fibrillation; Z79.01 Long term (current) use of anticoagulants
CPT/HCPCS: 12001; 90471; 99283